=== PATIENT | female | born 1965 | race Two or more races ===

== ENCOUNTER 2025-02-05 10:00 | Inpatient (IN) | payer OTHER ==
[~2025-02-05] VITALS: Ht 149.9 cm; Wt 47.6 kg
[2025-02-05] MEDS ORDERED: LOSARTAN POTASS25 MG PO (11:02)
[2025-02-05] MEDS ORDERED: SIMVASTATIN (11:03)
[2025-02-05] MEDS ORDERED: PEPCID (11:04)
[2025-02-05] MEDS ORDERED: VITAMIN (11:04)
[2025-02-05 11:14] VITALS: BP 162/77
[2025-02-05 11:47] LABS: COVID-19 AG NEGATIVE (NEGATIVE)
[2025-02-11] MEDS ORDERED: METHYLPREDNISOLONE SOD SUCC 125 MG VIAL ONE ×2 (06:16→09:15)
[2025-02-11] MEDS ORDERED: VANCOMYCIN HCL 1,000 MG VIAL ONE ×2 (06:16→07:08)
[2025-02-11] MEDS ORDERED: HEMOSTATIC MATRIX 1 KIT KIT TOP ONE (06:17)
[2025-02-11] MEDS ORDERED: METHYLPREDNISOLONE ACETATE 80 MG/ML VIAL ONE (06:40)
[2025-02-11] MEDS ORDERED: HEMOSTATIC MATRIX WITH THROMBIN KIT TOP ONE ×3 (06:40→11:00)
[2025-02-11] MEDS ORDERED: CEFAZOLIN SODIUM 1,000 MG VIAL ONE (07:08)
[2025-02-11] MEDS ORDERED: PROMETHAZINE HCL 50 MG/ML AMPUL IM PRN (07:15)
[2025-02-11] MEDS ORDERED: 0.9 % SODIUM CHLORIDE 1,000 ML IV SCH (07:15)
[2025-02-11] MEDS ORDERED: ENALAPRILAT DIHYDRATE 1.25 MG/ML VIAL IV PRN (07:15)
[2025-02-11] MEDS ORDERED: ACETAMINOPHEN-1 EAC2 PO (07:18)
[2025-02-11] MEDS ORDERED: MEDROLPACK PO (07:18)
[2025-02-11] MEDS ORDERED: COLACE100 MG PO (07:18)
[2025-02-11] MEDS ORDERED: ZOFRAN8 MG PO (07:19)
[2025-02-11] MEDS ORDERED: TRANEXAMIC ACID 100MG/1ML (1000MG) AMPUL ONE (08:22)
[2025-02-11] MEDS ORDERED: METHYLPREDNISOLONE SOD SUCC 125 MG VIAL IV SCH (09:00)
[2025-02-11] MEDS ORDERED: TAMSULOSIN HCL 0.4 MG CAP PO SCH (09:00)
[2025-02-11] MEDS ORDERED: VANCOMYCIN HCL 1,000 MG VIAL IV SCH (09:00)
[2025-02-11] MEDS ORDERED: MORPHINE SULFATE 4 MG/ML CARTRIDGE IV SCH (09:00)
[2025-02-11] MEDS ORDERED: LOSARTAN POTASSIUM 25 MG TABLET PO SCH (09:00)
[2025-02-11] MEDS ORDERED: CEFAZOLIN SODIUM 1,000 MG in 0.9 % SODIUM CHLORIDE 50 ML IV SCH (09:00)
[2025-02-11] MEDS ORDERED: DOCUSATE SODIUM 100MG CAP PO SCH (09:00)
[2025-02-11] MEDS ORDERED: TRANEXAMIC ACID 100MG/1ML (1000MG) AMPUL IV ONE (11:00)
[2025-02-11] MEDS ORDERED: METHYLPREDNISOLONE ACETATE 80 MG/ML VIAL IM ONE (11:00)
[2025-02-11 15:45] VITALS: BP 133/71; O2SAT 100
[2025-02-11] MEDS ORDERED: SIMVASTATIN 20 MG TABLET PO SCH (17:00)
[2025-02-11] MEDS ORDERED: ACETAMINOPHEN 500 MG GEL..CAP PO SCH (20:00)
[2025-02-12] MEDS ORDERED: SODIUM CHLORIDE 0.45 % 1,000 ML IV SCH
[2025-02-12 00:30] VITALS: BP 108/60; O2SAT 99
[2025-02-12 04:35] VITALS: BP 120/68; O2SAT 100
[2025-02-12] MEDS ORDERED: ACETAMINOPHEN WITH CODEINE 1 UDTAB TABLET PO PRN (06:00)
[2025-02-12] MEDS ORDERED: CEFAZOLIN SODIUM 1,000 MG VIAL ONE (08:10)
[2025-02-12 08:50] VITALS: BP 122/74; O2SAT 100
[2025-02-12 13:05] VITALS: BP 121/72; O2SAT 100
[2025-02-12 16:00] VITALS: BP 110/67; O2SAT 99
[2025-02-12 20:00] VITALS: BP 130/72; O2SAT 100
[2025-02-13 00:20] VITALS: BP 117/65; O2SAT 99
[2025-02-13 04:40] VITALS: BP 115/67; O2SAT 98
[2025-02-13] MEDS ORDERED: CEFAZOLIN SODIUM 1,000 MG VIAL ONE (07:47)
[2025-02-13 08:00] VITALS: BP 146/69; O2SAT 100
== END 2025-02-13 11:10 | disposition home or self-care (01) | DRG 473 ==
LOC: PED 02-11 06:00 → O/R 02-11 06:00 → SURH 02-11 07:00 → PED 02-11 14:38
PROVIDERS: ADMIT Orthopaedic Surgery Orthopaedic Surgery of the Spine; ATTEND Orthopaedic Surgery Orthopaedic Surgery of the Spine
PROC: 0RT30ZZ Resection of Cervical Vertebral Disc, Open Approach (ICD-10-PCS; 2025-02-11)
PROC: 07DS0ZZ Extraction of Vertebral Bone Marrow, Open Approach (ICD-10-PCS; 2025-02-11)
PROC: 4A1104G Monitoring of Peripheral Nervous Electrical Activity, Intraoperative, Open Approach (ICD-10-PCS; 2025-02-11)
PROC: 4A12X4Z Monitoring of Cardiac Electrical Activity, External Approach (ICD-10-PCS; 2025-02-11)
PROC: 3E0F7SF Introduction of Other Gas into Respiratory Tract, Via Natural or Artificial Opening (ICD-10-PCS; 2025-02-11)
PROC: 0RG20A0 Fusion of 2 or more Cervical Vertebral Joints with Interbody Fusion Device, Anterior Approach, Anterior Column, Open Approach (ICD-10-PCS; principal; 2025-02-11 07:00)
DX: M50.01 Cervical disc disorder with myelopathy, high cervical region (principal); M50.021 Cervical disc disorder at C4-C5 level with myelopathy; M50.022 Cervical disc disorder at C5-C6 level with myelopathy; M50.023 Cervical disc disorder at C6-C7 level with myelopathy; M48.02 Spinal stenosis, cervical region; M46.02 Spinal enthesopathy, cervical region; I10 Essential (primary) hypertension